=== PATIENT | male | born 1955 | race Caucasian/White ===

== ENCOUNTER → 2017-04-29 | Outpatient (CLI) | payer OTHER ==
--- NOTE | 2017-04-29 13:34 | REP ---
Clinical: Lung screening. History smoking. Comparison: none Technique: Axial low-dose noncontrast images from the thoracic inlet to the upper abdomen using lung screening technique. Findings: The lung rob are well-aerated. No consolidation, significant nodule or mass lesion is appreciated. No pleural effusion/reaction or pneumothorax. Tracheobronchial tree is patent. Mediastinum demonstrates mild atherosclerotic changes of the coronary arteries without cardiomegaly. Impression: Lung-RADS category I. No nodule or suspicious abnormality. Signed by Jackosn Ramos MD 04/29/2017 01:26 P
== END ==
LOC: M RAD 12:56
PROVIDERS: ATTEND Family Medicine
DX: Z12.2 Encounter for screening for malignant neoplasm of respiratory organs (principal); Z87.891 Personal history of nicotine dependence

== ENCOUNTER → 2018-07-12 | Outpatient (CLI) | payer OTHER ==
[2018-07-12 08:45] LABS: BLOOD UREA NITROGEN 17 MG/DL (7-18); CALCIUM LEVEL 8.9 MG/DL (8.8-10.2); CARBON DIOXIDE LEVEL 28 MEQ/L (21-32); CHLORIDE LEVEL 104 MEQ/L (98-107); CHOLESTEROL LEVEL 216 MG/DL (<200); CHOLESTEROL RISK RATIO 5.023 (<5); CREATININE FOR GFR 1.07 MG/DL (0.70-1.30); GLOMERULAR FILTRATION RATE > 60.0 (>49); GLUCOSE, FASTING 128 MG/DL (70-100); HDL CHOLESTEROL 43 MG/DL (>40); LDL CHOLESTEROL 132 MG/DL (<100); NON-HDL-C 173 MG/DL; POTASSIUM SERUM 3.8 MEQ/L (3.5-5.1); SODIUM LEVEL 138 MEQ/L (136-145); TRIGLYCERIDES LEVEL 207 MG/DL (<150)
== END ==
LOC: M LAB 06:41
PROVIDERS: ATTEND Family Medicine
DX: I25.10 Atherosclerotic heart disease of native coronary artery without angina pectoris (principal)

== ENCOUNTER → 2018-07-15 | Outpatient (CLI) | payer OTHER ==
[2018-07-15 09:18] LABS: HEMOGLOBIN A1c 7.1 %
== END ==
LOC: M LAB 07:52
PROVIDERS: ATTEND Family Medicine
DX: R73.01 Impaired fasting glucose (principal)

== ENCOUNTER → 2018-10-11 | Outpatient (CLI) | payer OTHER ==
[2018-10-11 08:00] LABS: HEMOGLOBIN A1c 6.8 %
[2018-10-11 08:46] LABS: MALB URINE SIEMENS < 5.0 MG/L
== END ==
LOC: M LAB 07:05
PROVIDERS: ATTEND Family Medicine
DX: E11.9 Type 2 diabetes mellitus without complications (principal)

== ENCOUNTER 2018-12-31 13:51 | Emergency (ER) | payer OTHER ==
[~2018-12-31] VITALS: Ht 172.7 cm; Wt 78.2 kg
[~2018-12-31 13:51] MED LIST: ALPR0.25; ATOR40TA75; ECOT81TA5 PO; METF500T4; METO1TAB32; PRAS10TA2
[2018-12-31 15:31] VITALS: BP 157/96
== END 2018-12-31 15:36 | disposition home or self-care (01) ==
LOC: M ED 13:51
DX: R04.89 Hemorrhage from other sites in respiratory passages (principal); K13.79 Other lesions of oral mucosa; I10 Essential (primary) hypertension; Z95.5 Presence of coronary angioplasty implant and graft; Z87.891 Personal history of nicotine dependence; Z79.899 Other long term (current) drug therapy; Z79.02 Long term (current) use of antithrombotics/antiplatelets; Z79.82 Long term (current) use of aspirin; Z79.84 Long term (current) use of oral hypoglycemic drugs; Z91.048 Other nonmedicinal substance allergy status

== ENCOUNTER 2018-12-31 17:20 | Emergency (ER) | payer OTHER ==
[~2018-12-31] VITALS: Ht 172.7 cm; Wt 78.2 kg
[~2018-12-31 17:20] MED LIST changes: +METF-791; -METF500T4
[2018-12-31] MEDS ORDERED: SILVER NITRATE APPLICATOR TOP ONE (18:30)
[2018-12-31 18:31] LABS: BASO # 0.1 10^3/uL (0.0-0.2); EOS # 0.1 10^3/uL (0.0-0.50); EOS % 0.9 % (0.0-3.0); HEMATOCRIT 45.4 % (42.0-52.0); HEMOGLOBIN 15.5 g/dl (13.5-17.5); LYMPH # 2.6 10^3/uL (1.5-4.5); MEAN CORPUSCULAR HEMOGLOBIN 30.6 pg (27.0-33.0); MEAN CORPUSCULAR HGB CONC 34.1 g/dl (32.0-36.5); MEAN CORPUSCULAR VOLUME 89.5 fl (80.0-96.0); MONO # 0.6 10^3/uL (0.0-0.8); MONO % 6.9 % (0.0-5.0); NEUTROPHILS # 5.8 10^3/uL (1.8-7.7); NEUTROPHILS % 62.9 % (36.0-66.0); PLATELET COUNT, AUTOMATED 233 10^3/uL (150-450); RED BLOOD COUNT 5.07 10^6/uL (4.30-6.10); WHITE BLOOD COUNT 9.3 10^3/uL (4.0-10.0)
[2018-12-31 18:57] LABS: BLOOD UREA NITROGEN 26 MG/DL (7-18); CALCIUM LEVEL 9.7 MG/DL (8.8-10.2); CARBON DIOXIDE LEVEL 25 MEQ/L (21-32); CHLORIDE LEVEL 108 MEQ/L (98-107); CREATININE FOR GFR 1.24 MG/DL (0.70-1.30); GLOMERULAR FILTRATION RATE > 60.0 (>49); GLUCOSE, FASTING 119 MG/DL (70-100); SODIUM LEVEL 142 MEQ/L (136-145)
[2018-12-31 19:40] VITALS: BP 131/77
== END 2018-12-31 19:46 | disposition home or self-care (01) ==
LOC: M ED 17:20
DX: R04.89 Hemorrhage from other sites in respiratory passages (principal); K13.79 Other lesions of oral mucosa; T45.525A Adverse effect of antithrombotic drugs, initial encounter; I10 Essential (primary) hypertension; Z95.5 Presence of coronary angioplasty implant and graft; Z87.891 Personal history of nicotine dependence; Z79.899 Other long term (current) drug therapy; Z79.02 Long term (current) use of antithrombotics/antiplatelets; Z79.82 Long term (current) use of aspirin; Z79.84 Long term (current) use of oral hypoglycemic drugs; Z91.048 Other nonmedicinal substance allergy status

== ENCOUNTER → 2019-01-10 | Outpatient (CLI) | payer OTHER ==
[~2019-01-10] MED LIST changes: -METF-791; +METF500T4
== END ==
LOC: M LAB 07:21
PROVIDERS: ATTEND Family Medicine
DX: E11.9 Type 2 diabetes mellitus without complications (principal)

== ENCOUNTER 2019-01-20 07:00 | Outpatient (RCR) | payer OTHER | END 2019-01-29 | LOC: M PT 07:00 | PROVIDERS: ATTEND Family Medicine | DX: Z51.89 Encounter for other specified aftercare (principal); M25.562 Pain in left knee ==

== ENCOUNTER → 2019-04-11 | Outpatient (CLI) | payer OTHER ==
[~2019-04-11] MED LIST changes: +METF-791; -METF500T4
[2019-04-11 07:44] LABS: HEMOGLOBIN A1c 6.8 %
== END ==
LOC: M LAB 06:58
PROVIDERS: ATTEND Family Medicine
DX: E11.9 Type 2 diabetes mellitus without complications (principal)

== ENCOUNTER → 2019-06-08 | Outpatient (CLI) | payer OTHER ==
--- NOTE | 2019-06-08 10:39 | REP ---
INDICATION: Low back pain PROCEDURE: Plain film study includes AP, lateral and oblique views, COMPARISON STUDIES: No prior similar studies FINDINGS: Spinal alignment within normal limits. No evidence of fracture or subluxation. No focal lesions. Bone density appears within normal limits. No evidence of a limiting canal or foraminal stenosis on plain film study. Disc degeneration appears slightly more progressed at the L5-S1 level. CONCLUSION: No acute findings. No evidence of fracture or subluxation. Degenerative changes, appear within normal limits for age, more progressed at the L5-S1 level. Electronically Signed by Rod Page MD 06/08/2019 10:31 A
== END ==
LOC: M RAD 10:01
PROVIDERS: ATTEND Family Medicine
DX: M54.5 Low back pain (principal)

== ENCOUNTER → 2019-07-12 | Outpatient (CLI) | payer OTHER ==
[2019-07-12 10:07] LABS: HEMOGLOBIN A1c 6.9 %
[2019-07-12 10:24] LABS: BLOOD UREA NITROGEN 26 MG/DL (7-18); CALCIUM LEVEL 9.5 MG/DL (8.8-10.2); CARBON DIOXIDE LEVEL 29 MEQ/L (21-32); CHLORIDE LEVEL 102 MEQ/L (98-107); CHOLESTEROL LEVEL 159 MG/DL (<200); CREATININE FOR GFR 1.22 MG/DL (0.70-1.30); GLOMERULAR FILTRATION RATE > 60.0 (>49); GLUCOSE, FASTING 132 MG/DL (70-100); HDL CHOLESTEROL 50 MG/DL (>40); LDL CHOLESTEROL 88 MG/DL (<100); NON-HDL-C 109 MG/DL; POTASSIUM SERUM 4.4 MEQ/L (3.5-5.1); SODIUM LEVEL 137 MEQ/L (136-145); TRIGLYCERIDES LEVEL 107 MG/DL (<150)
== END ==
LOC: M LAB 07-06 07:25
PROVIDERS: ATTEND Family Medicine
DX: I25.10 Atherosclerotic heart disease of native coronary artery without angina pectoris (principal); E11.9 Type 2 diabetes mellitus without complications

== ENCOUNTER → 2019-10-14 | Outpatient (CLI) | payer OTHER ==
[~2019-10-14] MED LIST changes: -METF-791; +METF-838
--- NOTE | 2019-10-14 12:03 | REP ---
LOW-DOSE LUNG SCREENING CT: Low-dose lung screening CT exam is performed without the use of intravenous contrast and compared to prior study of 04/29/2017. There is mild scattered linear fibrotic scarring bilaterally. There is no suspicious pulmonary nodule bilaterally. There is no acute infiltrate. Heart is not enlarged. The mediastinal contour is unremarkable. There is mild ectasia of the ascending thoracic aorta. There is no pleural effusion. There are degenerative changes of the spine. IMPRESSION: Lung-RADS category [address] No suspicious pulmonary nodule. Recommend followup exam in 1 year. Electronically Signed by Tomi Aaron MD 10/14/2019 12:07 P
== END ==
LOC: M RAD 10:27
PROVIDERS: ATTEND Family Medicine
DX: F17.201 Nicotine dependence, unspecified, in remission (principal); Z12.2 Encounter for screening for malignant neoplasm of respiratory organs

== ENCOUNTER → 2019-11-10 | Outpatient (CLI) | payer OTHER ==
[~2019-11-10] MED LIST changes: +ACET1TAB55 PO
[2019-11-10 09:42] LABS: CREATININE, URINE 68.2 MG/DL; MALB URINE SIEMENS < 5.0 MG/L; MAU/CREAT RATIO 7.3 MCG/MG (0.0-30.0)
[2019-11-10 09:54] LABS: HEMOGLOBIN A1c 7.3 %
== END ==
LOC: M LAB 07:50
PROVIDERS: ATTEND Family Medicine
DX: E11.9 Type 2 diabetes mellitus without complications (principal)

== ENCOUNTER 2019-11-14 12:47 | Emergency (ER) | payer OTHER ==
[~2019-11-14] VITALS: Ht 172.7 cm; Wt 83.6 kg
[~2019-11-14 12:47] MED LIST changes: -ACET1TAB55 PO
[2019-11-14] MEDS ORDERED: ACETAMINOPHEN TAB 650MG DOSE (2X325MG) PO ONE (13:45)
[2019-11-14] MEDS ORDERED: ACET1TAB55 PO (13:46)
[2019-11-14 14:10] LABS: BASO % 0.7 % (0.0-1.0); HEMATOCRIT 43.7 % (42.0-52.0); HEMOGLOBIN 15.3 g/dl (13.5-17.5); LYMPH # 0.4 10^3/uL (1.5-5.0); LYMPH % 6.3 % (24.0-44.0); MEAN CORPUSCULAR HEMOGLOBIN 31.7 pg (27.0-33.0); MEAN CORPUSCULAR VOLUME 90.7 fl (80.0-96.0); MONO # 0.3 10^3/uL (0.0-0.8); MONO % 5.2 % (0.0-5.0); NEUTROPHILS # 4.8 10^3/uL (1.5-8.5); NEUTROPHILS % 87.3 % (36.0-66.0); PLATELET COUNT, AUTOMATED 142 10^3/uL (150-450); RED BLOOD COUNT 4.82 10^6/uL (4.30-6.10); WHITE BLOOD COUNT 5.5 10^3/uL (4.0-10.0)
[2019-11-14] MEDS ORDERED: ACETAMINOPHEN 325 MG TAB PO ONE (14:15)
[2019-11-14 14:21] LABS: INR 1.2; PROTHROMBIN TIME 14.9 SECONDS (11.8-14.0)
[2019-11-14 14:22] LABS: PARTIAL THROMBOPLASTIN TIME 34.9 SECONDS (25.0-38.4)
--- NOTE | 2019-11-14 14:36 | REP ---
Clinical: The acute chest pain . Comparison: 08/31/2017 . Findings: The mediastinum and cardiac silhouette are stable and within normal limits for portable technique. The lung rob are clear without acute consolidation, effusion, or pneumothorax. Skeletal structures are intact. Impression: No acute cardiopulmonary process appreciated. Electronically Signed by Jackson Ramos MD 11/14/2019 02:27 P
[2019-11-14 14:48] LABS: ALBUMIN 3.7 GM/DL (3.2-5.2); ALT/SGPT 65 U/L (12-78); BILIRUBIN,DIRECT 0.3 MG/DL (0.0-0.2); BLOOD UREA NITROGEN 14 MG/DL (7-18); CALCIUM LEVEL 8.9 MG/DL (8.8-10.2); CARBON DIOXIDE LEVEL 22 MEQ/L (21-32); CHLORIDE LEVEL 99 MEQ/L (98-107); CK-MB VALUE MASS < 1.0 NG/ML (<3.6); CPK CREATINE PHOSPHOKINASE 123 U/L (39-308); CREATININE FOR GFR 1.17 MG/DL (0.70-1.30); FREE T4 1.01 NG/DL (0.76-1.46); GLOMERULAR FILTRATION RATE > 60.0 (>49); GLUCOSE, FASTING 231 MG/DL (70-100); LIPASE 221 U/L (73-393); MB/CK RELATIVE INDEX 0.81 (< OR =4); NT-PRO BNP 173 PG/ML (<125); POTASSIUM SERUM 3.9 MEQ/L (3.5-5.1); SODIUM LEVEL 131 MEQ/L (136-145); THYROID STIMULATING HORMONE 0.302 uIU/ML (0.358-3.740); TOTAL PROTEIN 7.3 GM/DL (6.4-8.2); TROPONIN I < 0.02 NG/ML (< 0.10)
[2019-11-14 15:45] VITALS: BP 99/72
--- NOTE | 2019-11-14 21:45 | ECGEPIP ---
[facility] - ED Test Date: 2019-11-14 Pat Name: BENITEZ MENENDEZ Department: Room: - Gender: Male [place] Operator: otilia : 1955 Requested By: AR Kamara Order Number: [id number] Reading MD: Clay Salas Measurements Intervals [place] Rate: 109 P: NM: 0 QRS: -15 QRSD: 105 T: 42 QT: 310 QTc: 418 Interpretive Statements SINUS TACHYCARDIA INFERIOR MYOCARDIAL INFARCTION, PROBABLY OLD POOR R WAVE PROGRESSION NO PRIORS FOR COMPARISON Electronically Signed on 11-14-2019 21:45:42 EDT by Clay Salas
== END 2019-11-14 16:06 | disposition home or self-care (01) ==
LOC: M ED 12:47
DX: B34.9 Viral infection, unspecified (principal); R00.0 Tachycardia, unspecified; I10 Essential (primary) hypertension; Z79.84 Long term (current) use of oral hypoglycemic drugs; Z79.82 Long term (current) use of aspirin; Z79.899 Other long term (current) drug therapy; Z86.79 Personal history of other diseases of the circulatory system; Z87.09 Personal history of other diseases of the respiratory system

== ENCOUNTER → 2020-03-05 | Outpatient (CLI) | payer OTHER ==
[~2020-03-05] MED LIST changes: +ACET1TAB55 PO
[2020-03-05 08:21] LABS: ALT/SGPT 29 U/L (12-78); BILIRUBIN,DIRECT 0.1 MG/DL (0.0-0.2); BILIRUBIN,TOTAL 0.4 MG/DL (0.2-1.0); BLOOD UREA NITROGEN 19 MG/DL (7-18); CALCIUM LEVEL 9.3 MG/DL (8.8-10.2); CARBON DIOXIDE LEVEL 29 MEQ/L (21-32); CHLORIDE LEVEL 106 MEQ/L (98-107); CREATININE FOR GFR 1.08 MG/DL (0.70-1.30); GLOMERULAR FILTRATION RATE > 60.0 (>49); GLUCOSE, FASTING 158 MG/DL (70-100); SODIUM LEVEL 139 MEQ/L (136-145); TOTAL PROTEIN 7.4 GM/DL (6.4-8.2)
[2020-03-05 10:44] LABS: HEMOGLOBIN A1c 6.9 %
== END ==
LOC: M LAB 07:04
PROVIDERS: ATTEND Family Medicine
DX: R74.01 Elevation of levels of liver transaminase levels (principal); E87.1 Hypo-osmolality and hyponatremia; E11.9 Type 2 diabetes mellitus without complications

== ENCOUNTER → 2020-08-22 | Outpatient (CLI) | payer MEDICARE ==
[2020-08-22 07:48] LABS: ALBUMIN 4.3 GM/DL (3.2-5.2); ALT/SGPT 43 U/L (12-78); BILIRUBIN,TOTAL 0.6 MG/DL (0.2-1.0); BLOOD UREA NITROGEN 23 MG/DL (7-18); CALCIUM LEVEL 9.7 MG/DL (8.8-10.2); CARBON DIOXIDE LEVEL 26 MEQ/L (21-32); CHLORIDE LEVEL 102 MEQ/L (98-107); CHOLESTEROL LEVEL 171 MG/DL (<200); CHOLESTEROL RISK RATIO 3.166 (<5); CREATININE FOR GFR 1.13 MG/DL (0.70-1.30); GLOMERULAR FILTRATION RATE > 60.0 (>49); GLUCOSE, FASTING 167 MG/DL (70-100); HDL CHOLESTEROL 54 MG/DL (>40); LDL CHOLESTEROL 89 MG/DL (<100); NON-HDL-C 117 MG/DL; SODIUM LEVEL 137 MEQ/L (136-145); TOTAL PROTEIN 7.9 GM/DL (6.4-8.2); TRIGLYCERIDES LEVEL 140 MG/DL (<150)
== END ==
LOC: M LAB 06:40
PROVIDERS: ATTEND Physician Assistant
DX: E78.2 Mixed hyperlipidemia (principal)

== ENCOUNTER → 2020-09-06 | Outpatient (CLI) | payer MEDICARE ==
[2020-09-06 07:59] LABS: MALB URINE SIEMENS 5.6 MG/L; MAU/CREAT RATIO 4.5 MCG/MG (0.0-30.0)
[2020-09-06 09:11] LABS: HEMOGLOBIN A1c 7.6 %
== END ==
LOC: M LAB 06:48
PROVIDERS: ATTEND Family Medicine
DX: E11.9 Type 2 diabetes mellitus without complications (principal)

== ENCOUNTER → 2020-10-20 | Outpatient (CLI) | payer MEDICARE ==
--- NOTE | 2020-10-20 09:07 | REP ---
INDICATION: NICOTINE DEPENDENCE. COMPARISON: Comparison screening chest CT studies are dated October 14, 2019 and April 29, 2017.. TECHNIQUE: Dose reduction was performed utilizing CARE dose with automated adjustment of the kV and MAS according to patient size; iterative reconstruction, automated exposure control, as well as adaptive dose shielding. Helical scanning is acquired and 3 mm axial images re-formatted at lung window settings. FINDINGS: Preliminary digital chief of hospital medicine radiograph is unremarkable. There is a tiny 1 mm nodule adjacent to the minor fissure on the right. No significant pulmonary nodule or mass has developed. No pleural or pericardial effusion is seen. There is some vascular calcification in the distribution of the coronary arteries. IMPRESSION: Lung RADS category 2 findings. Repeat screening study suggested in 1 year. <Electronically signed by Kendell Garcia > 10/20/20 0919
== END ==
LOC: M RAD 08:17
PROVIDERS: ATTEND Family Medicine
DX: F17.218 Nicotine dependence, cigarettes, with other nicotine-induced disorders (principal); Z12.2 Encounter for screening for malignant neoplasm of respiratory organs

== ENCOUNTER → 2021-02-27 | Outpatient (CLI) | payer MEDICARE ==
[2021-02-27 11:41] LABS: HEMOGLOBIN A1c 7.2 %
[2021-02-27 12:09] LABS: BLOOD UREA NITROGEN 20 MG/DL (7-18); CALCIUM LEVEL 9.7 MG/DL (8.8-10.2); CARBON DIOXIDE LEVEL 27 MEQ/L (21-32); CHLORIDE LEVEL 106 MEQ/L (98-107); CREATININE FOR GFR 1.08 MG/DL (0.70-1.30); GLOMERULAR FILTRATION RATE > 60.0 (>49); GLUCOSE, FASTING 157 MG/DL (70-100); SODIUM LEVEL 143 MEQ/L (136-145)
== END ==
LOC: M PLALAB 08:15
PROVIDERS: ATTEND Family Medicine
DX: E11.9 Type 2 diabetes mellitus without complications (principal)

== ENCOUNTER → 2021-08-06 | Outpatient (CLI) | payer MEDICARE ==
[2021-08-06 08:39] LABS: CHOLESTEROL RISK RATIO 2.45 (<5)
== END ==
LOC: M LAB 07:21
PROVIDERS: ATTEND Physician Assistant
DX: E78.2 Mixed hyperlipidemia (principal)

== ENCOUNTER → 2021-08-06 | Outpatient (CLI) | payer MEDICARE ==
[2021-08-06 08:35] LABS: BLOOD UREA NITROGEN 17 MG/DL (7-18); CALCIUM LEVEL 9.6 MG/DL (8.8-10.2); CARBON DIOXIDE LEVEL 27 MEQ/L (21-32); CHLORIDE LEVEL 104 MEQ/L (98-107); CREATININE FOR GFR 1.18 MG/DL (0.70-1.30); GLOMERULAR FILTRATION RATE > 60.0 (>49); GLUCOSE, FASTING 211 MG/DL (70-100); POTASSIUM SERUM 3.8 MEQ/L (3.5-5.1); SODIUM LEVEL 139 MEQ/L (136-145)
[2021-08-06 09:29] LABS: HEMOGLOBIN A1c 8.9 %
== END ==
LOC: M LAB 07:19
PROVIDERS: ATTEND Family Medicine
DX: E78.2 Mixed hyperlipidemia (principal); E11.9 Type 2 diabetes mellitus without complications

== ENCOUNTER → 2021-11-06 | Outpatient (CLI) | payer MEDICARE | LOC: M RAD 10:51 | PROVIDERS: ATTEND Family Medicine | DX: Z12.2 Encounter for screening for malignant neoplasm of respiratory organs (principal); F17.211 Nicotine dependence, cigarettes, in remission ==

== ENCOUNTER → 2022-01-07 | Outpatient (CLI) | payer MEDICARE ==
[2022-01-07 10:37] LABS: BASO # 0.1 10^3/uL (0.0-0.2); BASO % 1.2 % (0.0-1.0); EOS # 0.2 10^3/uL (0.0-0.5); EOS % 1.7 % (0.0-3.0); HEMATOCRIT 48.9 % (42.0-52.0); HEMOGLOBIN 15.7 g/dl (13.5-17.5); LYMPH # 2.5 10^3/uL (1.5-5.0); LYMPH % 28.8 % (24.0-44.0); MEAN CORPUSCULAR HEMOGLOBIN 30.5 pg (27.0-33.0); MEAN CORPUSCULAR HGB CONC 32.1 g/dl (32.0-36.5); MONO # 0.7 10^3/uL (0.0-0.8); MONO % 7.7 % (2.0-8.0); NEUTROPHILS # 5.3 10^3/uL (1.5-8.5); NEUTROPHILS % 60.4 % (36.0-66.0); PLATELET COUNT, AUTOMATED 262 10^3/uL (150-450); RED BLOOD COUNT 5.15 10^6/uL (4.30-6.10); WHITE BLOOD COUNT 8.8 10^3/uL (4.0-10.0)
[2022-01-07 11:10] LABS: HEMOGLOBIN A1c 9.7 %
[2022-01-07 11:27] LABS: ALBUMIN 4.1 GM/DL (3.2-5.2); ALT/SGPT 38 U/L (12-78); BILIRUBIN,TOTAL 0.7 MG/DL (0.2-1.0); BLOOD UREA NITROGEN 19 MG/DL (7-18); CALCIUM LEVEL 9.6 MG/DL (8.8-10.2); CARBON DIOXIDE LEVEL 28 MEQ/L (21-32); CHLORIDE LEVEL 104 MEQ/L (98-107); CHOLESTEROL LEVEL 141 MG/DL (<200); CHOLESTEROL RISK RATIO 2.711 (<5); CREATININE FOR GFR 1.15 MG/DL (0.70-1.30); GLOMERULAR FILTRATION RATE > 60.0 (>49); GLUCOSE, FASTING 232 MG/DL (70-100); HDL CHOLESTEROL 52 MG/DL (>40); LDL CHOLESTEROL 64 MG/DL (<100); NON-HDL-C 89 MG/DL; POTASSIUM SERUM 4.2 MEQ/L (3.5-5.1); SODIUM LEVEL 139 MEQ/L (136-145); TOTAL PROTEIN 8.4 GM/DL (6.4-8.2); TRIGLYCERIDES LEVEL 124 MG/DL (<150)
== END ==
LOC: M PLAIMG 08:47
PROVIDERS: ATTEND Physician Assistant
DX: M25.511 Pain in right shoulder (principal); E11.9 Type 2 diabetes mellitus without complications; I25.10 Atherosclerotic heart disease of native coronary artery without angina pectoris

== ENCOUNTER → 2022-11-25 | Outpatient (CLI) | payer MEDICARE | LOC: M PLAIMG 16:17 | PROVIDERS: ATTEND Physician Assistant | DX: M25.562 Pain in left knee (principal) ==